=== PATIENT | male | born 1950 | race Caucasian/White ===

== ENCOUNTER 2024-05-10 06:27 | Day surgery (SDC) | payer OTHER, SELFPAY ==
[2024-05-10] VITALS (14 sets, daily range): BP systolic 111–140; BP diastolic 68–89; BMI 25.9
[2024-05-10] MEDS: LOW STRENGTH ASPIRIN 324 MG PO (08:07)
[2024-05-10] MEDS: NSS 260 ML IV (08:08)
[2024-05-10] MEDS: NSS 1000 IV (10:00)
--- NOTE | 2024-05-10 10:08 | ITS.CL.CATH ---
Iso Coordinator - Catheterization
Cardiac Catheterization
Procedure Report:
LEFT HEART CATHETERIZATION
Date of Procedure: May 10, 2024
Procedures performed:
1: Coronary angiography
2: Left ventricular hemodynamic assessment
3: Physiologic lesion assessment of the left circumflex and first obtuse marginal branch
Primary Care Physician: Dr. Douglas Fleming
Primary Despatch Clerk: Dr. Samuel Perez
INDICATION: The patient is a 73-year-old man with a history of right hemispheric stroke in November of this year when he was found in atrial fibrillation on Eliquis, and cardiomyopathy by echo at that time that showed mild LV systolic dysfunction with
a possibility of a laminated apical thrombus who is referred for coronary angiography. Eliquis was held for the procedure
ACCESS: The patient was prepped and draped in usual sterile fashion. A 6 [place] sheath was placed in the right radial artery using the Seldinger over the wire technique.
HEMODYNAMIC FINDINGS (mmHg):
LV(s/d,EDP): 130/6, 12
Ao(s/d,m): 130/72, 94
ANGIOGRAPHIC FINDINGS:
Single-plane Left Ventriculography in [place] Projection: Not done
Coronary Angiography:
Dominance: Right
Left Main: Normal
Left Anterior Descending: The left anterior descending artery is a medium caliber vessel that gives rise to a medium caliber very high first diagonal branch that courses in a ramus distribution and a medium caliber second diagonal branch which takes
off from the mid LAD. These vessels are all widely patent with mild nonobstructive luminal irregularities and normal flow.
Left Circumflex: The left circumflex is a medium caliber vessel that gives rise to 1 large OM and a smaller second OM. The ostial circumflex has a smooth 30% stenosis. The first obtuse marginal branch has a focal 60 to 70% mid stenosis. The
distal vessel is relatively large and courses to the lateral apex.
Right Coronary: The right coronary artery is a medium caliber dominant vessel that gives rise to a medium caliber posterior descending artery. These vessels are widely patent with minimal luminal irregularities.
Other angiography:
1: In light of borderline angiographic appearance of the circumflex first obtuse marginal branch lesion, I elected to perform physiologic lesion assessment. The patient was pretreated with aspirin. Unfractionated heparin was given. A 6 [place] XB
3.5 guiding catheter was used to engage the left main. A Omni pressure wire was advanced easily across the lesion with the transducer position and distally in the large OM1. The IFR was 0.99 and 1.0 consistent with no evidence of significant
flow-limiting disease. The wire was removed and final angiography showed no changes.
Fluoroscopy Time (min): 5.5
Radiation Dose (mGy): 402
DAP (Gy.cm2): 26
Closure device: None. A TR band was applied for hemostasis at the right wrist.
Complications: None.
ASSESSMENT:
1: Single-vessel nonobstructive coronary artery disease by physiologic lesion assessment as described above.
2: Normal left ventricular filling pressures.
CONCLUSIONS and RECOMMENDATIONS:
1: Continue medical therapy for coronary artery disease and mild nonischemic cardiomyopathy.
2: Resume Eliquis with tonight's dose.
Summer Morales M.D.
Copy to: Dr. Douglas Fleming
[2024-05-10 13:13] LABS: ACT-LR - POC > 397 Seconds (116-155)
== END 2024-05-10 13:30 | disposition home or self-care (01) ==
LOC: CATH 06:27
PROVIDERS: ATTENDING PHYSICIAN Internal Medicine Interventional Cardiology; PRIMARYCARE PHYSICIAN Family Medicine; REFERRING PHYSICIAN Internal Medicine
DX: I25.10 Atherosclerotic heart disease of native coronary artery without angina pectoris (principal); Z86.73 Personal history of transient ischemic attack (TIA), and cerebral infarction without residual deficits; I48.91 Unspecified atrial fibrillation; Z79.01 Long term (current) use of anticoagulants; Z79.899 Other long term (current) drug therapy
CPT/HCPCS: 93458; 93571; C1769; C1887; C1894; Q9967